=== PATIENT | male | born 1945 | race Caucasian/White ===

== ENCOUNTER → 2016-05-06 | Outpatient (CLI) | payer OTHER | LOC: CIMAGING 15:27 | PROVIDERS: ATTEND Family Medicine | DX: M50.322 Other cervical disc degeneration at C5-C6 level (principal); M50.323 Other cervical disc degeneration at C6-C7 level; M99.71 Connective tissue and disc stenosis of intervertebral foramina of cervical region | CPT/HCPCS: 72052-PO ==

== ENCOUNTER → 2016-06-18 | Outpatient (CLI) | payer OTHER ==
[~2016-06-18] MED LIST: IOPAMIDOL (ISOVUE-300) 100 ML BTL IV ONE
== END ==
LOC: CIMAGING 12:55
PROVIDERS: ATTEND Physician Assistant
DX: K86.1 Other chronic pancreatitis (principal); I70.0 Atherosclerosis of aorta; M51.36 Other intervertebral disc degeneration, lumbar region; M48.06 Spinal stenosis, lumbar region
CPT/HCPCS: 74177; Q9967

== ENCOUNTER → 2016-08-20 | Outpatient (CLI) | payer OTHER ==
[~2016-08-20] MED LIST changes: +GADOBUTROL 10 ML VIAL IVP ONE; +GLUCAGON,HUMAN RECOMBINANT 0.3 MG in SYRINGE 0.3 ML IVP ONE; -IOPAMIDOL (ISOVUE-300) 100 ML BTL IV ONE
[2016-08-20 12:19] LABS: CREATININE 0.9 mg/dL (0.7-1.3); GLOMERULAR FILTRATION RATE > 60
== END ==
LOC: FIMAGING 11:10
PROVIDERS: ATTEND Physician Assistant
DX: R19.7 Diarrhea, unspecified (principal); K59.00 Constipation, unspecified
CPT/HCPCS: 72196; 74182; A9585; J1610

== ENCOUNTER → 2016-12-20 | Outpatient (CLI) | payer OTHER | LOC: CIMAGING 15:31 | PROVIDERS: ATTEND Family Medicine | DX: J45.901 Unspecified asthma with (acute) exacerbation (principal) | CPT/HCPCS: 71020-PO ==

== ENCOUNTER → 2017-04-22 | Outpatient (CLI) | payer OTHER | LOC: CIMAGING 16:41 | PROVIDERS: ATTEND Family Medicine | DX: R50.9 Fever, unspecified (principal) | CPT/HCPCS: 71046-PO ==

== ENCOUNTER → 2017-06-25 | Outpatient (CLI) | payer OTHER | LOC: CIMAGING 11:46 | PROVIDERS: ATTEND Family Medicine | DX: R91.8 Other nonspecific abnormal finding of lung field (principal); J45.909 Unspecified asthma, uncomplicated | CPT/HCPCS: 71046-PO ==

== ENCOUNTER 2017-12-18 10:18 | Emergency (ER) | payer OTHER ==
--- NOTE | 2017-12-18 10:50 | EDPHY ---
H & P Stated Complaint: dizziness started yesterday Time Seen by Provider: 12/18/17 10:36 HPI/ROS: CHIEF COMPLAINT: Vertigo HISTORY OF PRESENT ILLNESS: The patient is a 72-year-old man with a history of COPD and chronic tinnitus who presents to the emergency department today complaining of vertigo. He states that he felt vertiginous and imbalance ever since waking up yesterday morning. He states that he cannot walk straight. He leans to the left. He has never had this happen before. It is been constant not apartment. It is not worsened by head turning or movement. No recent fevers or infections. No ear pain. Denies weakness or numbness. Severity: Moderate Modifying factors: None REVIEW OF SYSTEMS: Constitutional: denies: chills, fever, recent illness, recent injury EENTM: denies: blurred vision, double vision, nose congestion Respiratory: denies: cough, shortness of breath Cardiac: denies: chest pain, irregular heart rate, lightheadedness, palpitations Gastrointestinal/Abdominal: denies: abdominal pain, diarrhea, nausea, vomiting, blood streaked stools Genitourinary: denies: dysuria, frequency, hematuria, pain Musculoskeletal: denies: joint pain, muscle pain Skin: denies: lesions, rash, jaundice, bruising Neurological: See HPI denies: headache, numbness, paresthesia, tingling, dizziness, weakness Hematologic/Lymphatic: denies: blood clots, easy bleeding, easy bruising Immunologic/allergic: denies: HIV/AIDS, transplant 10 systems reviewed and negative except as noted EXAM: GENERAL: Well-appearing, well-nourished and in no acute distress. HEAD: Atraumatic, normocephalic. EYES: Pupils equal round and reactive to light, extraocular movements intact, sclera anicteric, conjunctiva are normal. ENT: TMs normal, nares patent, oropharynx clear without exudates. Moist mucous membranes. NECK: Normal range of motion, supple without lymphadenopathy or JVD. LUNGS: Breath sounds clear to auscultation bilaterally and equal. No wheezes rales or rhonchi. HEART: Regular rate and rhythm without murmurs, rubs or gallops. ABDOMEN: Soft, nontender, normoactive bowel sounds. No guarding, no rebound. No masses appreciated. BACK: No CVA tenderness, no spinal tenderness, step-offs or deformities EXTREMITIES: Normal range of motion, no pitting or edema. No clubbing or cyanosis. NEUROLOGICAL: Cranial nerves II through XII grossly intact. Normal speech, imbalanced gait, leans to the left cannot do toe to heel. 5/5 strength, normal movement in all extremities, normal sensation, normal reflexes PSYCH: Normal mood, normal affect. SKIN: Warm, dry, normal turgor, no visible rashes or lesions. Source: Patient Exam Limitations: No limitations - Personal History Current Tetanus Diphtheria and Acellular Pertussis (TDAP): Yes - Medical/Surgical History Hx Asthma: Yes Hx Chronic Respiratory Disease: Yes Hx Diabetes: No Hx Cardiac Disease: No Hx Renal Disease: No Hx Cirrhosis: No Hx Alcoholism: No Hx HIV/AIDS: No Hx Splenectomy or Spleen Trauma: No Other PMH: compression fx of spine, htn, COPD, ASTHMA,HERNIA - Family History Significant Family History: No pertinent family hx - Social History Smoking Status: Former smoker Alcohol Use: Sober Drug Use: None Constitutional: Initial Vital Signs Temperature (C) 36.5 C 12/18/17 10:29 Heart Rate 64 12/18/17 10:29 Respiratory Rate 18 12/18/17 10:29 Blood Pressure 153/86 H 12/18/17 10:29 O2 Sat (%) 94 12/18/17 10:29 O2 Delivery Mode Room Air Allergies/Adverse Reactions: levofloxacin [From Levaquin] Allergy (Intermediate, Verified 12/18/17 10:26) Rash Home Medications: Medication Instructions Recorded Pro Air 03/07/09 Singulair 03/07/09 Apresoline 12/18/17 Azithromycin 12/18/17 Lasix 20 MG (*) 12/18/17 Meclizine HCl [Meclizine HCl 25 mg 25 mg PO BID PRN #10 tab 12/18/17 (RX,OTC)] Nortriptyline HCl 12/18/17 Medical Decision Making - Diagnostics EKG Interpretation: An EKG obtained and was read and documented in trace view. Please see trace view for full reading and report. Sinus rhythm, no acute ischemic changes ED Course/Re-evaluation: The patient has history of tinnitus and has mild nystagmus primarily to the left however does not seem to fatigue. This may be a peripheral cause of vertigo however I am concerned about a central cause especially since it is not intermittent. I spoke with Dr. Hernandez and will transfer the patient to the ER for MRI. He initially wanted to drive but I told him he could not because of his imbalance and difficulty ambulating. He drove his here this morning for her doctor's appointment upstairs. Differential Diagnosis: Partial list of the Differential diagnosis considered include but were not limited to; CVA, benign positional vertigo, labyrinthitis and although unlikely based on the history and physical exam, I also considered abscess, aneurysm, dissection. - Data Points Laboratory Results: Laboratory Results 12/18/17 13:25 12/18/17 13:25 Medications Given: Discontinued Medications Albuterol/Ipratropium (Duoneb) 3 ml IH EDNOW ONE Stop: 12/18/17 11:53 Last Admin: 12/18/17 11:55 Dose: 3 ml Meclizine HCl (Meclizine Hcl) 25 mg PO EDNOW ONE Stop: 12/18/17 11:14 Last Admin: 12/18/17 11:25 Dose: 25 mg Point of Care Test Results: Chemistry 12/18/17 13:27 POC Sodium 142 mEq/L mEq/L (135-145) POC Potassium 3.8 mEq/L mEq/L (3.3-5.0) POC Chloride 102 mEq/L mEq/L (97-110) POC BUN 22 mg/dL mg/dL (7-23) POC Creatinine 1.0 mg/dL mg/dL (0.7-1.3) POC Glucose 100 mg/dL mg/dL (70-100) ISTAT H&H 12/18/17 13:27 POC Hgb 16.0 gm/dL gm/dL (13.7-17.5) POC Hct 47 % % (40-51) Departure - Departure Disposition: [facility] Inpatient Acute Clinical Impression: Vertigo Condition: Good Instructions: Vertigo (ED) Additional Instructions: Read and follow provided instructions. Follow-up with your primary care physician in 1-2 days for re-evaluation. I have also provided you with a referral to our neurologist. Take medication as prescribed for vertigo. This medication will make you drowsy. Return to the emergency department for worsening symptoms, worsening headache, inability to ambulate, vomiting or other serious concerns. Referrals: Steve Hopkins, DO [Primary Care Provider] - As per Instructions Franc Watkins DO [Doctor of Osteopathy] - As per Instructions Prescriptions: Meclizine HCl [Meclizine HCl 25 mg (RX,OTC)] 25 mg PO BID PRN #10 tab PRN Reason: Dizziness
[2017-12-18] MEDS ORDERED: MECLIZINE HCL 25 MG TAB PO ONE (11:13)
[2017-12-18] MEDS ORDERED: IPRATROPIUM/ALBUTEROL 3 ML DEYVIAL IH ONE (11:52)
--- NOTE | 2017-12-18 13:31 | EDPHY ---
H & P Time Seen by Provider: 12/18/17 10:36 HPI/ROS: HPI Vertigo, imbalance. 72-year-old male by ambulance from the [facility] Emergency Department. This patient was initially seen by Dr. Hernandez. Please see his note for further details. This patient presented to the [facility] with complaint of vertiginous symptoms and imbalance with ambulating since yesterday morning. The symptoms have been constant. They have not worsened or improved. He states the symptoms now seem worse with head movement. The patient was sent to the emergency department here for MR imaging to evaluate for posterior circulation CVA. At this time the patient denies headache. He is still symptomatic but states he is feeling better. ROS: Constitutional: No fever, no chills. No weakness. Eyes: No discharge. No changes in vision. ENT: No sore throat. No nasal congestion or rhinorrhea. Respiratory: No cough. No shortness of breath. Cardiac: No chest pain, no palpitations. Gastrointestinal: No abdominal pain, no vomiting, no diarrhea. Genitourinary: No hematuria. No dysuria or increased frequency with urination. Musculoskeletal: No back pain. No neck pain. No myalgias or arthralgias. Skin: No rashes. Neurological: No headache. No focal weakness or altered sensation in his extremities. As above. Past medical history: Compression fracture of spine, hypertension, COPD, asthma , hernia. Social history: Former smoker. No alcohol use. Currently here by himself. Physical Exam: General Appearance: Alert, no distress. This patient is responding to questions appropriately and in full sentences. This patient appears well- hydrated and well-nourished. Eyes: Pupils equal and round no pallor or injection. No lid edema, erythema or injection. No photophobia. No nystagmus. Respiratory: There are no retractions, lungs are clear to auscultation with good air movement bilaterally. Cardiovascular: Regular rate and rhythm. No murmur. Gastrointestinal: Abdomen is soft and nontender, no masses, bowel sounds normal. No focal tenderness at McBurney's point. No Bess sign. Neurological: Motor sensory function is grossly intact. Cranial nerves are normal. Abnormal gait, the patient leaning slightly to to the left. Skin: Warm and dry, no rashes. Musculoskeletal: Neck is supple and nontender. Extremities are symmetrical. All joints range without pain or impingement. Psychiatric: No agitation. No depression. Database: EKG: EKG time is 2:59 p.m.; EKG shows a narrow complex normal sinus rhythm with a ventricular rate of 62. The WI, QRS, QT intervals are within normal limits. There are no ST-T wave changes indicative of ischemic or injury pattern. No evidence of right heart strain. Interpreted by me. Imaging: MRI brain with and without contrast: Negative for acute pathology. Results were discussed with staff radiologist Dr. Onel Evans. MRA of neck: Negative for acute pathology. Results were discussed with staff radiologist Dr. Onel Evans. Procedures: Emergency department course: His vital signs have been reviewed. He is moderately hypertensive. Vital signs are otherwise normal. IV was placed on his arrival. Appropriate blood work has been ordered. Patient will be sent to the MRI suite shortly. EKG obtained and reviewed by myself. I explained to the patient the plan of management. All of his questions were answered. 3:15 p.m., the patient was re-evaluated. He was sleeping but easily arousable. He states he is feeling better now. Repeat neurologic Assessment is nonfocal. Results of MRI and MRA discussed with him. 3:30 p.m., spoke with on-call neurologist Dr. Watkins. Case discussed with him. MRIs results reviewed. He agrees no further emergency department workup required. Patient will be discharged home with diagnosis of peripheral vertigo. This was discussed with the patient. I will treat him with meclizine. I will have him follow up with his primary care physician. 4:00 p.m., patient re-evaluated. Resting comfortably at this time. He is able to ambulate without difficulty. Plan for follow-up with his primary care physician discussed. I also explained I would provide him with a Neurology follow-up as well. I will prescribe him meclizine for peripheral vertigo. He feels comfortable going home at this time. Follow-up and return to emergency department precautions reviewed with him in detail. All of his questions were answered. He was discharged in good condition. Differential Diagnosis: The differential diagnosis on this patient includes but is not limited to peripheral versus central etiology of vertigo. This represents a partial list of diagnoses considered. These considerations are based on history, physical exam, past history, reassessment and diagnostic testing. Smoking Status: Former smoker Constitutional: Initial Vital Signs Temperature (C) 36.5 C 12/18/17 10:29 Heart Rate 64 12/18/17 10:29 Respiratory Rate 18 12/18/17 10:29 Blood Pressure 153/86 H 12/18/17 10:29 O2 Sat (%) 94 12/18/17 10:29 O2 Delivery Mode Room Air Allergies/Adverse Reactions: levofloxacin [From Levaquin] Allergy (Intermediate, Verified 12/18/17 10:26) Rash Home Medications: Medication Instructions Recorded Pro Air 03/07/09 Singulair 03/07/09 Apresoline 12/18/17 Azithromycin 12/18/17 Lasix 20 MG (*) 12/18/17 Meclizine HCl [Meclizine HCl 25 mg 25 mg PO BID PRN #10 tab 12/18/17 (RX,OTC)] Nortriptyline HCl 12/18/17 Medical Decision Making - Data Points Laboratory Results: Laboratory Results 12/18/17 13:25 12/18/17 13:25 Medications Given: Discontinued Medications Albuterol/Ipratropium (Duoneb) 3 ml IH EDNOW ONE Stop: 12/18/17 11:53 Last Admin: 12/18/17 11:55 Dose: 3 ml Meclizine HCl (Meclizine Hcl) 25 mg PO EDNOW ONE Stop: 12/18/17 11:14 Last Admin: 12/18/17 11:25 Dose: 25 mg Point of Care Test Results: Chemistry 12/18/17 13:27 POC Sodium 142 mEq/L mEq/L (135-145) POC Potassium 3.8 mEq/L mEq/L (3.3-5.0) POC Chloride 102 mEq/L mEq/L (97-110) POC BUN 22 mg/dL mg/dL (7-23) POC Creatinine 1.0 mg/dL mg/dL (0.7-1.3) POC Glucose 100 mg/dL mg/dL (70-100) ISTAT H&H 12/18/17 13:27 POC Hgb 16.0 gm/dL gm/dL (13.7-17.5) POC Hct 47 % % (40-51) Departure - Departure Disposition: [facility] Inpatient Acute Clinical Impression: Vertigo Condition: Good Instructions: Vertigo (ED) Additional Instructions: Read and follow provided instructions. Follow-up with your primary care physician in 1-2 days for re-evaluation. I have also provided you with a referral to our neurologist. Take medication as prescribed for vertigo. This medication will make you drowsy. Return to the emergency department for worsening symptoms, worsening headache, inability to ambulate, vomiting or other serious concerns. Referrals: Steve Hopkins DO [Primary Care Provider] - As per Instructions Franc Watkins DO [Doctor of Osteopathy] - As per Instructions Prescriptions: Meclizine HCl [Meclizine HCl 25 mg (RX,OTC)] 25 mg PO BID PRN #10 tab PRN Reason: Dizziness
[2017-12-18] MEDS ORDERED: GADOBUTROL 10 ML VIAL IVP ONE (13:32)
[2017-12-18 14:24] VITALS: BP 146/90
[2017-12-18 15:30] LABS: PLATELET COUNT 268 10^3/uL (150-400)
[2017-12-18 15:37] LABS: PROTIME(PATIENT) 13.4 SEC (12.0-15.0)
--- NOTE | 2017-12-19 14:19 | CPEKG ---
Test Reason : OPEN Blood Pressure : / mmHG Vent. Rate : 062 BPM Atrial Rate : 062 BPM P-R Int : 168 ms QRS Dur : 097 ms QT Int : 401 ms P-R-T Axes : 060 -01 038 degrees QTc Int : 408 ms Sinus rhythm Confirmed by Franc Hernandez ([id number]) on 12/19/2017 2:19:22 PM Referred By: Confirmed By:Franc Hernandez
== END 2017-12-18 16:36 | disposition still patient (30) ==
LOC: CED 10:18
DX: R42 Dizziness and giddiness (principal); J44.9 Chronic obstructive pulmonary disease, unspecified; I10 Essential (primary) hypertension; Z87.891 Personal history of nicotine dependence
CPT/HCPCS: 70548; 70553; 93005; 99285; A9585; 82435-PO; 82565-PO; 82947-PO; 84132-PO; 84295-PO; 84520-PO; 85014-PO

== ENCOUNTER 2018-02-03 12:03 | Day surgery (SDC) | payer OTHER ==
--- NOTE | 2018-02-03 08:40 | PDHPUP ---
History & Physical Update H&P update statement: This history and physical update is based on an assessment of the patient which was completed after admission or registration (within 24 hours), but prior to the surgery/procedure. H&P update: H&P reviewed & patient examined, no change in patient's condition since H&P completed
[2018-02-03] MEDS ORDERED: BUPIVACAINE/EPI 0.25% 30 ML SDV ONE (12:36)
[2018-02-03] MEDS ORDERED: ceFAZolin 2 GM/DEXTROSE 100 ML IV ONE (12:41)
[2018-02-03] MEDS ORDERED: LIDOCAINE 1% 2 ML INJ ID PRN (12:42)
[2018-02-03] MEDS ORDERED: LR 1,000 ML IV ONE (12:42)
--- NOTE | 2018-02-03 13:47 | POSTANESTH ---
Post Anesthetic Evaluation Cardiovascular Status: Normal, Stable Respiratory Status: Normal, Stable Level of Consciousness/Mental Status: Unconscious Complications Possibly Related to Anesthesia: None Noted
--- NOTE | 2018-02-03 13:53 | PDANEPAE ---
ANE History of Present Illness 72 yo male with ventral hernia for robot-assisted repair. ANE Past Medical History - Cardiovascular History Hx Hypertension: No Hx Arrhythmias: No Hx Chest Pain: No Hx Coronary Artery / Peripheral Vascular Disease: No Hx CHF / Valvular Disease: No Hx Palpitations: No - Pulmonary History Hx COPD: Yes Hx Asthma/Reactive Airway Disease: Yes Hx Recent Upper Respiratory Infection: No Hx Oxygen in Use at Home: No Hx Sleep Apnea: No Sleep Apnea Screening Result - Last Documented: Positive - Neurologic History Hx Cerebrovascular Accident: No Hx Seizures: No Hx Dementia: No Neurologic History Comment: SEIZURE 1990 RESULT OF SEVERE CELIAC DISEASE - NONE SINCE - Endocrine History Hx Diabetes: No Hypothyroid: No Hyperthyroid: No Obesity: no - Renal History Hx Renal Disorders: No - Liver History Hx Hepatic Disorders: No Hepatic History Comment: ENLARGED LIVER - Neurological & Psychiatric Hx Hx Neurological and Psychiatric Disorders: Yes Neurological / Psychiatric History Comment: anxiety/depression - Cancer History Hx Cancer: No - Congenital Disorder History Hx Congenital Disorders: No - GI History Hx Gastrointestinal Disorders: No - Other Health History Other Health History: ECZEMA - Chronic Pain History Chronic Pain: No - Surgical History Prior Surgeries: APPENDECTOMY. LUMBAR FUSION. R KNEE SCOPE. CATARACT. GANGLION CYST R ANE Review of Systems Review of Systems: - Exercise capacity METS (RN): 4 METS - Systems Constitutional: Reports: no symptoms Cardiac: Reports: no symptoms Respiratory: Reports: no symptoms ANE Patient History - Allergies Allergies/Adverse Reactions: levofloxacin [From Levaquin] Allergy (Intermediate, Verified 12/18/17 10:26) Rash - Home Medications Home medications: home medication list seen and reviewed (Med list in computer wrong per pt. Pt says he takes Flomax, Alprazolam, Pro-Air as needed, Flovent now, and Nortriptyline) Home Medications: Pro Air 03/07/09 [Last Taken 02/03/18] Nortriptyline HCl 12/18/17 [Last Taken 02/02/18] - NPO status NPO Since - Liquids (Date): 02/03/18 NPO Since - Liquids (Time): 00:00 NPO Since - Solids (Date): 02/02/18 NPO Since - Solids (Time): 22:00 - Anes Hx Anes Hx: no prior problems - Smoking Hx Smoking Status: Former smoker - Family Anes Hx Family Anes Hx: neg - N/A Family Hx Anesthesia Complications: NEG ANE Labs/Vital Signs - Vital Signs Blood Pressure: 128/81 Heart Rate: 72 Respiratory Rate: 16 O2 Sat (%): 6 Height: 167.64 cm Weight: 65.771 kg ANE Physical Exam - Airway Neck exam: FROM Mallampati Score: Class 2 Mouth exam: dentures - Pulmonary Pulmonary: clear to auscultation - Cardiovascular Cardiovascular: regular rate and rhythym - ASA Status ASA Status: II
[2018-02-03] MEDS ORDERED: DEXAMETHASONE 4 MG/ML VIAL ONE (14:10)
[2018-02-03] MEDS ORDERED: fentaNYL 100 MCG/2 ML INJ ONE ×2 (14:11→16:16)
[2018-02-03] MEDS ORDERED: PROPOFOL/EMULSION 500 MG/50 ML BOTTLE IV ONE (14:11)
[2018-02-03] MEDS ORDERED: LIDOCAINE 2% 5 ML SDV ONE (14:11)
[2018-02-03] MEDS ORDERED: ROCURONIUM 100 MG/10 ML VIAL ONE (14:14)
[2018-02-03] MEDS ORDERED: ePHEDrine SULFATE 25 MG/5 ML SYR ONE (14:45)
[2018-02-03] MEDS ORDERED: VASOPRESSIN 20 UNIT/ML VIAL ONE (14:57)
[2018-02-03] MEDS ORDERED: KETOROLAC 30 MG/1 ML SDV ONE (15:11)
[2018-02-03] MEDS ORDERED: ONDANSETRON 4 MG/2 ML VIAL ONE (15:11)
[2018-02-03] MEDS ORDERED: SUGAMMADEX SODIUM 200 MG/2 ML VIAL IVP ONE (15:12)
--- NOTE | 2018-02-03 15:13 | POSTOPPROG ---
Post Op Note Date of Operation: 02/03/18 Surgeon: Sergio Eddy Software Testing Specialist: ARNOL Mcmillan Anesthesiologist: Lucia Anesthesia: GET(General Endotracheal) Pre-op Diagnosis: RIH Post-op Diagnosis: same Procedure: Robotic assisted lap inguinal hernia repair with mesh Findings: large direct hernia Inf/Abcess present in the surg proc area at time of surgery?: No EBL: Minimal
[2018-02-03] MEDS ORDERED: NALOXONE HCL 0.4 MG/ML INJ IVP PRN (15:19)
[2018-02-03] MEDS ORDERED: ALBUTEROL 3 ML DEYVIAL IH PRN (15:19)
[2018-02-03] MEDS ORDERED: HYDROCODONE/APAP 5/325 TAB PO PRN (15:19)
[2018-02-03] MEDS ORDERED: ACETAMINOPHEN 500 MG TAB PO PRN (15:19)
[2018-02-03] MEDS ORDERED: PROMETHAZINE HCL 25 MG/ML INJ IVP PRN (15:19)
[2018-02-03] MEDS ORDERED: BACITRACIN ZINC 14.2 GM OINTTUBE TP ONE (15:27)
[2018-02-03] MEDS: fentaNYL 100 MCG/2 ML INJ IVP PRN ×2 (16:18→16:26)
[2018-02-03] MEDS ORDERED: oxyCODONE IR 5 MG TAB PO ONE (17:05)
[2018-02-03] MEDS ORDERED: oxyCODONE IR 5 MG TAB ONE (17:05)
[2018-02-03 17:38] VITALS: BP 125/74
--- NOTE | 2018-02-03 17:42 | GOP ---
DATE OF OPERATION: 02/03/2018 SURGEON: Sergio Eddy MD FRONT END WEB DESIGNER: Soila Evans, certified surgical first press operator. ANESTHESIA: General endotracheal. ANESTHESIOLOGIST: Dr. Neli Cannon. PREOPERATIVE DIAGNOSIS: Right inguinal hernia. POSTOPERATIVE DIAGNOSIS: Moderate-sized right direct inguinal hernia. PROCEDURE PERFORMED: Robotic assisted laparoscopic inguinal hernia repair with mesh. FINDINGS: Large direct defect successfully reduced and repaired with Bard 3D Light large-size mesh. SPECIMENS: None. ESTIMATED BLOOD LOSS: 5 cc. DESCRIPTION OF PROCEDURE: The patient was greeted in the preoperative suite, and once again, risks, benefits, and alternatives were discussed. Consent was signed. He was then brought back to the oper ative suite, placed on the OR table in a supine position. After all anesthesia machines, including S CDs were on and functioning, a World Health Organization time-out was performed. After successful in duction of general anesthesia, the patient's abdomen was prepped and draped in typical sterile fashio n. I commenced the procedure by making a supraumbilical cutdown through which the Veress needle was pass ed. I achieved pneumoperitoneum to 15 mmHg CO2, which was well tolerated by the patient. Through th is, I then inserted an 8 mm port. Once successfully in the abdomen, I inserted 2 additional 8 mm tro cars, 1 in the right and 1 in the left upper quadrant, both under direct visualization. Once success fully in the abdomen, the patient was placed in a gentle Trendelenburg position and the robot was doc ked. I turned my attention toward the right side where the peritoneum was scored an open from the ASIS all the way medial to the pubic tubercle. The peritoneal flap was then taken down to the visceral sac w here a moderate-sized direct defect was successfully skeletonized and reduced. Cord structures were also skeletonized from the peritoneal flap. Once an adequate flap was appropriately made, a Bard 3D Light large-size mesh was brought in. It was attached to Serge ligament, as well as either side of the inferior epigastric vessels with interrupted Vicryl stitches. Peritoneum was then closed with ru nning 3 0 V-Loc suture. The remainder of the patient's abdomen was interrogated. I found no defects on the left side. Ports were removed. Pneumoperitoneum was evacuated. The port sites were then closed with interrupte d Monocryl, over which Dermabond was placed. The patient was then extubated in the operative suite a nd taken to the PACU in satisfactory condition. DRAINS: None. COUNTS: All counts were reported as correct x2. /[id number]/MODL
== END 2018-02-03 17:52 | disposition home or self-care (01) ==
LOC: FSGY 12:03
PROVIDERS: ATTEND Surgery
PROC: 0YU54JZ Supplement Right Inguinal Region with Synthetic Substitute, Percutaneous Endoscopic Approach (ICD-10-PCS; principal; 2018-02-03 13:30)
DX: K40.90 Unilateral inguinal hernia, without obstruction or gangrene, not specified as recurrent (principal); J44.9 Chronic obstructive pulmonary disease, unspecified; J45.909 Unspecified asthma, uncomplicated; E78.5 Hyperlipidemia, unspecified; F17.210 Nicotine dependence, cigarettes, uncomplicated; Z86.12 Personal history of poliomyelitis
CPT/HCPCS: C1781; J0690; J1100; J1885; J2405; J2704; J3010

== ENCOUNTER 2018-06-02 08:17 | Day surgery (SDC) | payer OTHER ==
[2018-06-02] MEDS ORDERED: ceFAZolin 2 GM/DEXTROSE 100 ML IV ONE (08:53)
[2018-06-02] MEDS ORDERED: LR 1,000 ML IV SCH (08:53)
[2018-06-02] MEDS ORDERED: LR 1,000 ML IV ONE (08:53)
[2018-06-02] MEDS ORDERED: fentaNYL 100 MCG/2 ML INJ ONE (09:37)
[2018-06-02] MEDS ORDERED: PROPOFOL 200 MG/20 ML VIAL ONE (09:38)
[2018-06-02] MEDS ORDERED: LIDOCAINE 2% 5 ML SDV ONE (09:38)
[2018-06-02] MEDS ORDERED: ROPIVACAINE HCL 150 MG/30 ML INJ ONE (09:40)
[2018-06-02] MEDS ORDERED: EPINEPHrine 1 MG/ML INJ ONE (09:42)
[2018-06-02] MEDS ORDERED: BUPIVACAINE/EPI 0.5% 30 ML SDV ONE (09:42)
--- NOTE | 2018-06-02 10:09 | PDGENHP ---
History & Physical Chief Complaint: r shoulder pain/weakness Relevant Physical Exam: weak er/ss. pain at bicep Cardiorespiratory Assessment: cta. rrr. soft and nt
[2018-06-02] MEDS ORDERED: MIDAZOLAM 2 MG/2 ML VIAL ONE (10:27)
[2018-06-02] MEDS ORDERED: DEXAMETHASONE 4 MG/ML VIAL ONE (10:55)
[2018-06-02] MEDS ORDERED: ePHEDrine SULFATE 25 MG/5 ML SYR ONE ×2 (11:01→11:36)
[2018-06-02] MEDS ORDERED: PHENYLEPHRINE HCL 100 MCG/ML SYR ONE (11:06)
[2018-06-02] MEDS ORDERED: CALCIUM CHLORIDE 1 GM/10 ML INJ ONE (11:09)
[2018-06-02] MEDS ORDERED: THROMBIN (BOVINE) 5,000 UNIT VIAL TP ONE (11:09)
[2018-06-02] MEDS ORDERED: MIDAZOLAM 2 MG/2 ML VIAL IVP ONE (11:19)
--- NOTE | 2018-06-02 11:19 | PDANEPAE ---
ANE History of Present Illness right shoulder rotator cuff tear for repair ANE Past Medical History - Cardiovascular History Hx Hypertension: No Hx Arrhythmias: No Hx Chest Pain: No Hx Coronary Artery / Peripheral Vascular Disease: No Hx CHF / Valvular Disease: No Hx Palpitations: No - Pulmonary History Hx COPD: Yes Hx Asthma/Reactive Airway Disease: Yes Hx Recent Upper Respiratory Infection: Yes Hx Oxygen in Use at Home: No Hx Sleep Apnea: No Sleep Apnea Screening Result - Last Documented: Positive Pulmonary History Comment: AALN triggers. chronic bronchitis & cough, currently on ABX - Neurologic History Hx Cerebrovascular Accident: No Hx Seizures: No Hx Dementia: No Neurologic History Comment: seizure in 1990 - states was due to celiac disease and malnutrition. peripherial neuropathy bilateral feet. Hx vertigo - Endocrine History Hx Diabetes: No - Renal History Hx Renal Disorders: Yes Renal History Comment: BPH - Liver History Hx Hepatic Disorders: Yes Hepatic History Comment: enlarged liver r/t Hep A as a child - Neurological & Psychiatric Hx Hx Neurological and Psychiatric Disorders: Yes Neurological / Psychiatric History Comment: anxiety/depression - Cancer History Hx Cancer: No - Congenital Disorder History Hx Congenital Disorders: No - GI History Hx Gastrointestinal Disorders: Yes Gastrointestinal History Comment: celiac disease. colitis. IBS - Other Health History Other Health History: intermittent back pain. polio at age 5. plaque psoriasis. lens implant in right eye. upper & lower dentures. wears glasses for reading - Chronic Pain History Chronic Pain: No - Surgical History Prior Surgeries: Hernia repair 01/2018. APPENDECTOMY. LUMBAR FUSION. R KNEE SCOPE. CATARACT. GANGLION CYST R ANE Review of Systems Review of Systems: - Exercise capacity METS (RN): 4 METS ANE Patient History - Allergies Allergies/Adverse Reactions: levofloxacin [From Levaquin] Allergy (Verified 05/25/18 12:34) Rash - Home Medications Home medications: home medication list seen and reviewed Home Medications: Pro Air PRN 03/07/09 [Last Taken 06/02/18] Nortriptyline HCl 12/18/17 [Last Taken 06/02/18] AMOXICILLIN 05/25/18 [Last Taken Unknown] Adult One Daily Multivit Tab 05/25/18 [Last Taken 06/02/18] Alprazolam 05/25/18 [Last Taken 06/02/18] FLUoxetine 05/25/18 [Last Taken 06/01/18] Tamsulosin HCl 05/25/18 [Last Taken 06/01/18] Vitamin C 05/25/18 [Last Taken 06/02/18] Vitamin D3 05/25/18 [Last Taken 06/01/18] - NPO status NPO Since - Liquids (Date): 06/02/18 NPO Since - Liquids (Time): 07:00 NPO Since - Solids (Date): 06/01/18 NPO Since - Solids (Time): 22:00 - Anes Hx Anes Hx: no prior problems - Smoking Hx Smoking Status: Former smoker - Family Anes Hx Family Hx Anesthesia Complications: NEG ANE Labs/Vital Signs - Vital Signs Blood Pressure: 112/79 Heart Rate: 69 Respiratory Rate: 18 O2 Sat (%): 93 Height: 167.64 cm Weight: 68.039 kg ANE Physical Exam - Airway Neck exam: FROM Mouth exam: dentures - Pulmonary Pulmonary: no respiratory distress - Cardiovascular Cardiovascular: regular rate and rhythym - ASA Status ASA Status: II ANE Anesthesia Plan Anesthesia Plan: GA w LMA Regional Anesthesia: single shot NB, interscalene BP NB Urgent/Emergent Case: Anes eval completed preop but documented later for safe timely pt care
[2018-06-02] MEDS ORDERED: VASOPRESSIN 20 UNIT/ML VIAL ONE (11:42)
[2018-06-02] MEDS ORDERED: ACETAMINOPHEN 500 MG TAB PO PRN (11:54)
[2018-06-02] MEDS ORDERED: ONDANSETRON 4 MG/2 ML VIAL IVP PRN ×2 (11:54→13:04)
[2018-06-02] MEDS ORDERED: fentaNYL 100 MCG/2 ML INJ IVP PRN (11:54)
[2018-06-02] MEDS ORDERED: NALOXONE HCL 0.4 MG/ML INJ IVP PRN (11:54)
[2018-06-02] MEDS ORDERED: LR 500 ML IV PRN (11:54)
[2018-06-02] MEDS ORDERED: PHENYLEPHRINE HCL 100 MCG/ML SYR IVP PRN (11:54)
[2018-06-02] MEDS ORDERED: PROMETHAZINE HCL 25 MG/ML INJ IVP PRN (11:54)
[2018-06-02] MEDS ORDERED: HYDROCODONE/APAP 5/325 TAB PO PRN ×2 (11:54→13:04)
[2018-06-02] MEDS ORDERED: HYDROmorphONE/DILAUDID 1 MG/ML INJ IVP PRN (11:54)
[2018-06-02] MEDS ORDERED: ALBUTEROL 3 ML DEYVIAL IH PRN (11:54)
[2018-06-02] MEDS ORDERED: oxyCODONE IR 5 MG TAB PO PRN (11:54)
--- NOTE | 2018-06-02 11:54 | POSTANESTH ---
Post Anesthetic Evaluation Cardiovascular Status: Normal, Stable Respiratory Status: Normal, Stable Level of Consciousness/Mental Status: Can Participate in Eval, Mildly Sleepy, Arousable Pain Control: Adequate, Prn Tx Ordered Nausea/Vomiting Control: Adequate, Prn Tx Ordered Complications Possibly Related to Anesthesia: None Noted
[2018-06-02] MEDS ORDERED: OXYCODONE/APAP 5/325 TAB PO PRN (13:04)
[2018-06-02] MEDS ORDERED: ACETAMINOPHEN 325 MG TAB PO PRN (13:04)
--- NOTE | 2018-06-02 13:04 | POSTOPPROG ---
Post Op Note Date of Operation: 06/02/18 Surgeon: Elizabet Hammond Painting Worker: coltrain Anesthesia: LMA, Other (Specify) Pre-op Diagnosis: r shoulder impingement w/ rct/ac oa/bicep tendinopathy/labral tear Procedure: open r bicep tenodesis and r shoulder scope with rcr x3/sad/ac resection an Inf/Abcess present in the surg proc area at time of surgery?: No Depth: Deep Incisional (Fascial) EBL: 50-100
--- NOTE | 2018-06-02 14:34 | GOP ---
[f rep st] OPERATIVE REPORT DATE OF OPERATION: 06/02/2018 SURGEON: Elizabet Hammond MD PLUG MAKING OPERATOR: Zen Richards, CSFA, LSA, whose presence was medically necessary. ANESTHESIA: LMA, plus scalene nerve block per surgeon's request. PREOPERATIVE DIAGNOSIS: Diagnosis is right shoulder impingement syndrome with rotator cuff tear, bic eps tendinopathy, labral tear, and acromioclavicular osteoarthritis. POSTOPERATIVE DIAGNOSIS: Diagnosis is right shoulder impingement syndrome with rotator cuff tear, bi ceps tendinopathy, labral tear, and acromioclavicular osteoarthritis. PROCEDURE PERFORMED: Open right biceps tenodesis with right shoulder arthroscopy with rotator cuff r epair x3, subacromial decompression, distal clavicle excision, debridement of rotator cuff, biceps st ump, and labrum. FINDINGS: INDICATIONS: This is a 72-year-old male with a several-month history of right shoulder pain worsenin g with use and with time. MRI reveals a rotator cuff tear, as well as biceps tendinopathy and a sign ificant anterior acromial curve. He wishes to have surgery in order to resolve the problem. DESCRIPTION OF PROCEDURE: Patient was brought to the operating room after the right side had been id entified as the correct side by the patient, nurse, and physician. Once in the operating room, he wa s given a scalene block on the right side and then placed under general anesthesia using LMA. Once a sleep, he was placed in a beach chair position with the right upper extremity sterilely prepped and d raped in usual fashion using GSI solution. Once prepped and draped, incision was made off the posterolateral corner of the acromion with the cam era introduced without difficulty. Inspection of the joint revealed significant fraying of the bicep s tendon, as well as a hole in the rotator cuff and labral tearing; therefore, instruments were remov ed from the shoulder and a 4 cm incision was made on the anterior portion of the shoulder directly ov er the biceps tendon with sharp dissection carried down through the skin and subcutaneous layers. Bl eeding controlled using electrocautery. Blunt dissection between the deltopectoral interval identify ing the biceps groove. The biceps sheath was opened up in its entirety. The biceps tendon was pulle d out. #2 FiberWire was woven into the biceps tendon. It was cut short. It was measured to be 6 mm in diameter. Therefore, guidewire was placed within the bicipital groove. A 7 mm hole was made on the anterior cortex of the humerus and a 9 mm [place] anchor was driven into the anterior humerus sec uring the biceps tendon into place. The camera was reintroduced into the shoulder. Using in to out technique, an anterior portal was made superolateral to coracoid process with a 6 x 75 mm threaded cannula placed through the anterior port al. Bovie was used to cut the biceps tendon off and the remainder of the biceps tendon was excised. The 3.5 mm smooth shaver was then used to debride the biceps stump, the labral tear at the anterior superior and posterior portions of the labrum, as well as trim the edges of the rotator cuff. Once c ompleted, all instruments were removed from the shoulder joint. Using the same portal sites were reintroduced in the subacromial space. A third incision was made 2 cm lateral to the acromial process in line with the posterior cortex of the clavicle with the camera switched to the lateral portal and alternating using arthroscopic and Bovie tip and a shaver was used to remove the abundant amount of soft tissue within the subacromial space, as well as the soft tissu e on the undersurface of the acromion. He was noted to have a large anterior acromial curve. An Acr omionizer paul was used to remove that curve until achieving a flat ceiling, removing approximately 8 mm of bone. Attention was turned to the distal clavicle, which was also noted to have a short, sharp inferior spu r, and this was also removed using a combination of shaver and bur removing approximately 6 mm of bon e. The camera was then switched back to the posterior portal. The greater tuberosity was eburnated to bleeding bone. Three sets of #2 FiberWire woven into the anterior, middle, and posterior portions of the rotator cuff, each attached to a 4.5 mm [place] anchor driven into the bone pulling the rotat or cuff onto the eburnated bone of the greater tuberosity. Once completed, the camera was switched back to the lateral portal. An 18-gauge needle was used to i solate and find the AC joint, with an incision made directly on the posterior portion of the AC joint , and a shaver and bur were used to remove the distal end of the clavicle achieving an AC resection o f approximately 1 cm. Once finished, all instruments were removed from the subacromial space with the 4 portal sites closed using 3-0 nylon suture in a qricid-[id number]-[id number] type stitch. 30 cc of Marcaine was infused in the subac romial space, as well as platelet gel. Once completed, the bicipital wound was dressed with Steri-St rips. All wounds were then dressed with Xeroform, 4 x 4, and Tegaderm. The patient was completely u ndraped in the operating room, had a shoulder immobilizer placed on the right upper extremity. He wa s woken up, extubated, transferred onto a stretcher, and sent to recovery room in good condition. /[id number]/MODL
[2018-06-02 15:53] VITALS: BP 98/59
== END 2018-06-02 16:47 | disposition home or self-care (01) ==
LOC: FSGY 08:17
PROVIDERS: ATTEND Orthopaedic Surgery
DX: M25.811 Other specified joint disorders, right shoulder (principal); M75.101 Unspecified rotator cuff tear or rupture of right shoulder, not specified as traumatic; M75.21 Bicipital tendinitis, right shoulder; G47.33 Obstructive sleep apnea (adult) (pediatric); J42 Unspecified chronic bronchitis; G62.9 Polyneuropathy, unspecified; K90.0 Celiac disease; Z98.1 Arthrodesis status; Z86.12 Personal history of poliomyelitis
CPT/HCPCS: C1713; J0171; J0690; J1100; J2250; J2370; J2704; J2795; J3010

== ENCOUNTER 2018-06-07 11:45 | Emergency (ER) | payer OTHER ==
--- NOTE | 2018-06-07 12:19 | EDPHY ---
General Time Seen by Provider: 06/07/18 12:19 Narrative: CLINICAL IMPRESSION: Extremity edema, weight gain ASSESSMENT/PLAN: Patient is a 72-year-old male with a significant history of celiac disease, depression and BPH who presents to the emergency department with 5 lb weight gain and bilateral lower extremity swelling since his right rotator cuff repair 5 days prior. Patient is afebrile, not toxic appearing and in no acute distress. His lungs were clear to auscultation bilaterally. He had symmetric, bilateral lower extremity edema extending into thighs. RUE immobilized, mild hand swelling unchanged since surgery. An ECG was obtained and revealed sinus rhythm with a rate of 69, no evidence of ischemia. This was reviewed by myself and Dr. Puente. CBC revealed no evidence of leukocytosis, he was found to have a mild anemia which I suspect is secondary to both fluid overload and recent surgery. Metabolic panel was grossly unremarkable. BNP was mildly elevated at 481. Chest x-ray revealed atelectasis and small right pleural effusion, no evidence of CHF. Bilateral lower extremity ultrasounds were performed, negative for acute DVT. The patient was given 10 mg of Lasix in the emergency department. Physical examination and workup in the emergency department is very reassuring. There were no findings to suggest extremity DVT, hypoalbuminemia, liver disease, ROBLES, acute CHF or traumatic injury. I suspect his symptoms are secondary to 3rd space fluid overload after surgery. The patient is well established with his primary care provider Dr. Perry although we do not have him listed, he will call to schedule an appointment tomorrow for repeat examination. He will continue ambulation, compression, limit salt intake and conservative fluid intake. Patient will return to the emergency department for development of chest pain, shortness of breath, worsening swelling or for any other concerning symptom. Patient verbalizes understanding and he is in agreement with this plan. DIFFERENTIAL DX: Differential includes but not limited to and in no particular order- DVT, third space fluid overload, CHF, malnutrition, hepatic disease, renal disease, lymphedema ED COURSE: 1240: Case discussed with Dr. Puente 1318: ECG reviewed by myself and Dr. Puente reveals normal sinus rhythm with a rate of 69. No evidence of acute ischemia. 1336: Laboratory studies are reassuring, no evidence of leukocytosis. BNP is mildly elevated at 450. No evidence of hypoalbuminemia. Metabolic panel grossly normal. Still awaiting chest x-ray and ultrasound. 1340: Chest x-ray with left basilar atelectasis, trace right pleural effusion. No evidence of CHF. CHIEF COMPLAINT: Extremity swelling, weight gain HPI: Patient is a 72-year-old male with a significant history of celiac disease, depression and BPH who presents to the emergency department with 5 lb weight gain and bilateral lower extremity swelling now extending into his trunk. Patient reports this past Friday he had a complicated right rotator cuff repair performed by Dr. Elizabet Hammond. Over the last several days he has noticed a weight gain with a total of 5 lb, he has been wearing his compression stockings but knows that he has increased lower extremity edema which he feels is now present in his lower abdomen. Patient has had constant unchanged edema in his right hand since surgery. No history of CHF, DVT or similar episodes. He denies any fever, CP, SOB abdominal pain or extremity pain. He has been trying to limit water intake, denies increased urine output. PMH: Pertinent Past Surgical History: Celiac, BPH, Depression Family History: Not contributory Social History: Denies smoking or illicit drug use REVIEW OF SYSTEMS: All other systems negative Constitutional: No fever, no chills, appetite change. Eyes: No discharge, vision change ENT: No sore throat, congestion, ear pain. Cardiovascular: No chest pain, no palpitations. Respiratory: No cough, no shortness of breath. Gastrointestinal: No abdominal pain, no vomiting, diarrhea. Genitourinary: No hematuria, dysuria, flank pain, pelvic pain Musculoskeletal: No back pain, joint swelling, joint pain, myalgias. Extremity swelling. Skin: No rashes, color change. Neurological: No headache, dizziness, weakness. PHYSICAL EXAM: General Appearance: Alert, well-appearing and in no acute distress. HENT: Normocephalic, atraumatic. Bilateral external ears are normal. Bilateral tympanic membranes are normal with pearly parikh reflex. Nares are clear, mucosa is pink. Oropharynx is clear, uvula is midline. There is no tonsillar enlargement or exudate. The dentition is normal. Eyes: PERRLA, no acute vision change, nystagmus, swelling, discharge, pain or photosensitivity. Conjunctiva pink, no pallor or injection Neck: Supple, nontender, no lymphadenopathy, no midline pain, FROM, no meningismus. Respiratory: There are no retractions, lungs are clear to auscultation. Diminished mildly bilaterally at the bases. There is no wheeze, rhonchi or significant rales present. Cardiac: Regular rate and rhythm, no murmurs or gallops. Gastrointestinal: Abdomen is soft, nontender, bowel sounds normal, no masses/ hernia, no rigidity, guarding or focal peritoneal findings. Neurological: Alert and oriented x 3, CN 2-12 grossly intact, normal gait no ataxia, DTR's intact, normal sensation and strength Skin: Warm, dry, no rashes, no nodules on palpation. Musculoskeletal: Right arm in immobilizer, dressing intact right shoulder without erythema. Upper arm soft and non tender, mild hand edema compared to left- patient reports present since surgery. There is mild appreciable generalized bilateral lower extremity up into thighs, this is symmetric. He does have some stasis dermatitis noted bilaterally. No obvious varicosities. Patient with eczematous changes bilaterally consistent with his history. No areas of warmth or erythema. Psychiatric: Patient is oriented X 3, there is no agitation. MEDICAL DECISION MAKING: Patient was seen independently. Secondary supervising physician at time of evaluation was Dr. Puente, he did not evaluate this patient. Diagnosis: Extremity swelling. New, requires workup Summary: See Assessment and Plan for summary of ED visit Clinical lab tests: ordered / reviewed. Independent visualization of images, tracing, or specimens: Yes. Decision to obtain medical records or history from someone other than the patient: No Review / Summarize previous medical records: Yes Discussed patient with another provider: Yes, Dr. Puente Patient Progress: Stable, discharge. - History Smoking Status: Former smoker - Objective Vital Signs: Initial Vital Signs Temperature (C) 37 C 06/07/18 11:49 Heart Rate 85 06/07/18 11:49 Respiratory Rate 18 06/07/18 11:49 Blood Pressure 142/69 H 06/07/18 11:49 O2 Sat (%) 97 06/07/18 11:49 O2 Delivery Mode Room Air Allergies/Adverse Reactions: levofloxacin [From Levaquin] Allergy (Verified 06/07/18 11:48) Rash Home Medications: Medication Instructions Recorded Pro Air PRN 03/07/09 Nortriptyline HCl 12/18/17 Adult One Daily Multivit Tab 05/25/18 Alprazolam 05/25/18 FLUoxetine 05/25/18 Tamsulosin HCl 05/25/18 Vitamin C 05/25/18 Vitamin D3 05/25/18 Laboratory Results: Laboratory Results 06/07/18 13:00 06/07/18 13:00 Medications Given: Discontinued Medications Furosemide (Lasix Injection) 10 mg IVP EDNOW ONE Stop: 06/07/18 14:39 Last Admin: 06/07/18 14:53 Dose: 10 mg Departure - Departure Disposition: Home, Routine, Self-Care Clinical Impression: Swelling of extremity Condition: Good Instructions: Edema (ED) Additional Instructions: DISCHARGE INSTRUCTIONS FROM YOUR DOCTOR Thank you for visiting our emergency department today. Please keep in mind that discharge from the emergency department does not mean that there is nothing wrong - it simply means that we have not identified an emergency condition that requires further evaluation or treatment in the hospital. Please call to schedule follow-up appointment with your primary care provider tomorrow. Your workup in the emergency department today was very reassuring, there was no evidence of blood clot or heart failure. Your given a single dose of diuresis to help with your fluid overload. Continue to wear your compression stockings, continue to mobilize frequently throughout the day as well as exercise her right hand. Please minimize her salt intake and do not consume large amounts of water until follow-up. People present with illnesses and injuries in different ways, and it is always possible that we have missed something. You may always return for re-evaluation if symptoms worsen or if they are not improving or if you develop new/different symptoms. Again, thank you for choosing our emergency department. We hope that you feel better. Referrals: Bety Fields MD [Medical Doctor] - As per Instructions (Please establish care with a primary care provider, this is a referral in case you do not have 1. )
[2018-06-07 13:11] LABS: PLATELET COUNT 251 10^3/uL (150-400)
[2018-06-07] MEDS ORDERED: FUROSEMIDE 100 MG/10 ML VIAL IVP ONE (14:38)
[2018-06-07 14:57] VITALS: BP 150/90
--- NOTE | 2018-06-07 15:15 | CPEKG ---
Test Reason : OPEN Blood Pressure : / mmHG Vent. Rate : 069 BPM Atrial Rate : 071 BPM P-R Int : 171 ms QRS Dur : 095 ms QT Int : 402 ms P-R-T Axes : 049 022 046 degrees QTc Int : 431 ms Sinus rhythm Confirmed by Romario Puente ([id number]) on 06/07/2018 3:14:59 PM Referred By: Romario Puente Confirmed By:Romario Puente
== END 2018-06-07 16:03 | disposition home or self-care (01) ==
DX: M79.89 Other specified soft tissue disorders (principal); R63.5 Abnormal weight gain
CPT/HCPCS: 71046; 93005; 93970; 96374; 99285; J1940